=== PATIENT | female | born 1955 | race Caucasian/White ===

== ENCOUNTER 2017-09-23 12:11 | Inpatient (IN) | payer BC ==
[2017-09-23] MEDS ORDERED: Ondansetron 4 MG Tab.DIS PO PRN (16:55)
[2017-09-23] MEDS: Lactulose Soln 10 GM/15 ML 15 ML UD Cup PO SCH (19:18)
[2017-09-23] MEDS: oxyCODONE 5 MG Tab PO PRN (19:55)
[2017-09-24] MEDS: Alendronate 70 MG Tab PO SCH (06:19)
[2017-09-24] MEDS: oxyCODONE 5 MG Tab PO PRN ×2 (08:32→19:55)
[2017-09-24] MEDS: Enoxaparin 40 MG/0.4 ML Syringe SUBCUT SCH (08:34)
[2017-09-24] MEDS: Lactulose Soln 10 GM/15 ML 15 ML UD Cup PO SCH (08:34)
[2017-09-24] MEDS: Polyethylene Glycol 3350 Powder 17 GM Packet PO SCH (08:34)
[2017-09-24] MEDS: Lactulose Soln 10 GM/15 ML 30 ML UD Cup PO SCH (19:53)
[2017-09-25] MEDS: oxyCODONE 5 MG Tab PO PRN ×2 (08:29→20:47)
[2017-09-25] MEDS: Enoxaparin 40 MG/0.4 ML Syringe SUBCUT SCH (08:30)
[2017-09-25] MEDS: Lactulose Soln 10 GM/15 ML 30 ML UD Cup PO SCH ×2 (08:30→20:48)
[2017-09-25] MEDS: Polyethylene Glycol 3350 Powder 17 GM Packet PO SCH (08:30)
--- NOTE | 2017-09-25 12:44 | PCM.HP ---
H&P History of Present Illness - General Date of Service: 09/24/17 Admit Problem/Dx: Admission Diagnosis/Problem Admission Diagnosis/Problem Fracture of femur Source of Information: Patient - History of Present Illness Initial Comments - Free Text/Narative: 62-year-old female admitted to swing bed for continued therapy following fixation of her right femur. Patient had been doctoring with right upper extremity and hip pain. An MRI had been ordered for further evaluation. However the patient fell before this test could be obtained. Patient is uncertain whether or not her leg broke initially causing the fall or if the fall contributed to the fracture. Right Upper Leg Pain Score (Numeric/FACES): 5 - Related Data Allergies/Adverse Reactions: Allergies Allergy/AdvReac Type Severity Reaction Status Date / Time amoxicillin Allergy Unknown Hives Verified 09/23/17 16:52 Home Medications: Home Meds Acetaminophen [Tylenol] 650 mg PO Q4H PRN 09/23/17 [History] Alendronate Sodium [Fosamax] 70 mg PO Q7D 09/23/17 [History] Enoxaparin Sodium [Lovenox] 40 mg SQ DAILY 09/23/17 [History] Lactulose [Chronulac] 20 gm PO BID 09/23/17 [History] Polyethylene Glycol 3350 [MiraLAX] 17 gm PO DAILY 09/23/17 [History] Sennosides/Docusate Sodium [Senna-Docusate Sodium] 1 tab PO BID 09/23/17 [ History] oxyCODONE 5 mg PO Q4H PRN 09/23/17 [History] Past Medical History Musculoskeletal History: Reports: Osteoporosis Endocrine/Metabolic History: Reports: Osteopenia - Past Surgical History Female Surgical History: Reports: Hysterectomy Other Musculoskeletal Surgeries/Procedures:: right femur nailing Social & Family History - Family History Family Medical History: Noncontributory - Tobacco Use Smoking Status *Q: Unknown Ever Smoked - Recreational Drug Use Recreational Drug Use: No Drug Use in Last 12 Months: No H&P Review of Systems - Review of Systems: Review Of Systems: See Below General: Reports: No Symptoms HEENT: Reports: No Symptoms Pulmonary: Reports: No Symptoms Cardiovascular: Reports: No Symptoms Gastrointestinal: Reports: No Symptoms. Denies: Constipation Genitourinary: Reports: No Symptoms Musculoskeletal: Reports: Leg Pain Skin: Reports: No Symptoms Psychiatric: Reports: No Symptoms Neurological: Reports: No Symptoms Hematologic/Lymphatic: Reports: No Symptoms Immunologic: Reports: No Symptoms Exam - Exam Exam: See Below - Vital Signs Vital Signs: Last Vital Signs Temp 36.4 C 09/25/17 06:00 Pulse 74 09/25/17 06:00 Resp 20 09/25/17 06:00 BP 135/68 09/25/17 06:00 Pulse Ox 98 09/25/17 06:00 Weight: 77.111 kg - Exam General: Alert, Oriented HEENT: Conjunctiva Clear, EOMI Neck: Supple, Trachea Midline Lungs: Clear to Auscultation Cardiovascular: Regular Rate, Regular Rhythm GI/Abdominal Exam: Normal Bowel Sounds Extremities: No Pedal Edema Skin: Warm, Dry Neuro Extensive - Mental Status: Alert, Oriented x3 - Patient Data Result Diagrams: 09/24/17 06:55 09/24/17 06:55 *Q Meaningful Use (ADM) - VTE *Q VTE Criteria *Q: - Stroke *Q Stroke Criteria *Q: - AMI *Q AMI Criteria *Q: - Problem List (1) Osteopenia SNOMED Code(s): 041735268 ICD Code: M85.80 - OTH DISRD OF BONE DENSITY AND STRUCTURE, UNSPECIFIED SITE Status: Chronic Current Visit: Yes Qualifiers: Osteopenia location: multiple sites Qualified Code(s): M85.89 - Other specified disorders of bone density and structure, multiple sites (2) Closed fracture of femur SNOMED Code(s): 96992879 ICD Code: S72.90XA - UNSP FRACTURE OF UNSP FEMUR, INIT ENCNTR FOR CLOSED FRACTURE Status: Acute Current Visit: No Problem List Initiated/Reviewed/Updated: Yes Orders Last 24hrs: Active Orders 24 hr Category Date Time Status CBC W/O DIFF,HEMOGRAM [HEME] Q7D Lab 09/29/17 06:30 Ordered CBC W/O DIFF,HEMOGRAM [HEME] Q7D Lab 10/06/17 06:30 Ordered CBC W/O DIFF,HEMOGRAM [HEME] Q7D Lab 10/13/17 06:30 Ordered CREATININE W/GFR [CHEM] Q7D Lab 09/29/17 06:30 Ordered CREATININE W/GFR [CHEM] Q7D Lab 10/06/17 06:30 Ordered CREATININE W/GFR [CHEM] Q7D Lab 10/13/17 06:30 Ordered Lactulose [Cephulac] Med 09/24/17 20:00 Active 20 gm PO BID Medication Orders Acetaminophen (Tylenol) 650 mg PO Q4H PRN PRN Reason: Pain Alendronate Sodium (Fosamax) 70 mg PO Q7D@0700 [facility] Last Admin: 09/24/17 06:19 Dose: 70 mg Enoxaparin Sodium (Lovenox) 40 mg SUBCUT DAILY [facility] Stop: 10/14/17 08:01 Last Admin: 09/25/17 08:30 Dose: 40 mg Admin: 09/24/17 08:34 Dose: 40 mg Lactulose (Cephulac) 20 gm PO BID [facility] Last Admin: 09/25/17 08:30 Dose: Not Given Admin: 09/24/17 19:53 Dose: Not Given Ondansetron HCl (Zofran Odt) 4 mg PO Q4H PRN PRN Reason: nausea, able to take PO Oxycodone HCl (Oxycodone) 5 mg PO Q4H PRN PRN Reason: Pain Last Admin: 09/25/17 08:29 Dose: 5 mg Admin: 09/24/17 19:55 Dose: 5 mg Admin: 09/24/17 08:32 Dose: 5 mg Admin: 09/23/17 19:55 Dose: 5 mg Polyethylene Glycol (Miralax) 17 gm PO DAILY [facility] Last Admin: 09/25/17 08:30 Dose: Not Given Admin: 09/24/17 08:34 Dose: Not Given Senna/Docusate Sodium (Senna Plus) 1 tab PO BID [facility] Last Admin: 09/25/17 08:29 Dose: 1 tab Admin: 09/24/17 19:57 Dose: 1 tab Admin: 09/24/17 08:34 Dose: Not Given Admin: 09/23/17 19:55 Dose: 1 tab Assessment/Plan Comment:: Again patient will be admitted to swing bed and enrolled in both physical therapy as well as occupational therapy. She is a full code. Anticipate return to home upon discharge.
[2017-09-26] MEDS: Enoxaparin 40 MG/0.4 ML Syringe SUBCUT SCH (08:07)
[2017-09-26] MEDS: Acetaminophen 325 MG Tab PO PRN (08:09)
[2017-09-26] MEDS: Lactulose Soln 10 GM/15 ML 30 ML UD Cup PO SCH ×2 (08:36→20:59)
[2017-09-26] MEDS: Polyethylene Glycol 3350 Powder 17 GM Packet PO SCH (08:36)
[2017-09-26] MEDS: oxyCODONE 5 MG Tab PO PRN (21:06)
[2017-09-27] MEDS: Enoxaparin 40 MG/0.4 ML Syringe SUBCUT SCH (08:22)
[2017-09-27] MEDS: Acetaminophen 325 MG Tab PO PRN ×2 (08:32→22:32)
[2017-09-27] MEDS: Lactulose Soln 10 GM/15 ML 30 ML UD Cup PO SCH ×2 (15:56→21:17)
[2017-09-27] MEDS: Polyethylene Glycol 3350 Powder 17 GM Packet PO SCH (15:57)
[2017-09-28] MEDS: Enoxaparin 40 MG/0.4 ML Syringe SUBCUT SCH (07:33)
[2017-09-28] MEDS: Polyethylene Glycol 3350 Powder 17 GM Packet PO SCH (07:34)
[2017-09-28] MEDS: Lactulose Soln 10 GM/15 ML 30 ML UD Cup PO SCH ×2 (07:34→20:23)
[2017-09-28] MEDS: Acetaminophen 325 MG Tab PO PRN (20:36)
[2017-09-29] MEDS: Enoxaparin 40 MG/0.4 ML Syringe SUBCUT SCH ×2 (06:41→07:03)
[2017-09-29] MEDS: Polyethylene Glycol 3350 Powder 17 GM Packet PO SCH (07:03)
[2017-09-29] MEDS: Lactulose Soln 10 GM/15 ML 30 ML UD Cup PO SCH ×2 (07:03→20:51)
[2017-09-30] MEDS: Enoxaparin 40 MG/0.4 ML Syringe SUBCUT SCH (07:52)
[2017-09-30] MEDS: Lactulose Soln 10 GM/15 ML 30 ML UD Cup PO SCH (07:52)
[2017-09-30] MEDS: Polyethylene Glycol 3350 Powder 17 GM Packet PO SCH (07:52)
[2017-09-30] MEDS: Acetaminophen 325 MG Tab PO PRN (07:55)
[2017-10-01] MEDS: Alendronate 70 MG Tab PO SCH (06:54)
[2017-10-01] MEDS: Enoxaparin 40 MG/0.4 ML Syringe SUBCUT SCH (07:49)
[2017-10-01] MEDS: Acetaminophen 325 MG Tab PO PRN (22:34)
[2017-10-02 05:22] VITALS: BP 118/51
[2017-10-02] MEDS: Enoxaparin 40 MG/0.4 ML Syringe SUBCUT SCH (07:22)
--- NOTE | 2017-10-02 22:22 | PCM.DCSUM1 ---
Discharge Summary - Hospital Course Free Text/Narrative:: 62 year old female admitted to swing bed for continued therapy following ORIF of her right femur fracture. - Discharge Data Discharge Date: 10/01/17 Discharge Disposition: Home, Self-Care 01 Condition: Good - Discharge Diagnosis/Problem(s) (1) Osteopenia SNOMED Code(s): 863385464 ICD Code: M85.80 - OTH DISRD OF BONE DENSITY AND STRUCTURE, UNSPECIFIED SITE Status: Chronic Qualifiers: Osteopenia location: multiple sites Qualified Code(s): M85.89 - Other specified disorders of bone density and structure, multiple sites (2) Closed fracture of femur SNOMED Code(s): 75877426 ICD Code: S72.90XA - UNSP FRACTURE OF UNSP FEMUR, INIT ENCNTR FOR CLOSED FRACTURE Status: Acute - Patient Summary/Data Consults: Consultations 09/23/17 13:47 OT Evaluation and Treatment [CONS] Routine PT Evaluation and Treatment [CONS] Routine - Patient Instructions Driving: Do Not Drive Showering/Bathing: May Shower - Discharge Plan Home Medications: Home Meds Acetaminophen [Tylenol] 650 mg PO Q4H PRN tablet 10/01/17 [Rx] Alendronate [Fosamax] 70 mg PO Q7D@0700 tablet 10/01/17 [Rx] - Discharge Summary/Plan Comment DC Time >30 min.: No - General Info Date of Service: 10/01/17 Admission Dx/Problem (Free Text: Admission Diagnosis/Problem Admission Diagnosis/Problem Fracture of femur Functional Status: Reports: Pain Controlled - Review of Systems General: Denies: Fever HEENT: Reports: No Symptoms Pulmonary: Reports: No Symptoms. Denies: Shortness of Breath Cardiovascular: Reports: No Symptoms. Denies: Chest Pain Gastrointestinal: Reports: No Symptoms. Denies: Constipation Genitourinary: Reports: No Symptoms Musculoskeletal: Reports: No Symptoms. Denies: Leg Pain - Patient Data Vitals - Most Recent: Last Vital Signs Temp 36.9 C 10/02/17 05:21 Pulse 78 10/02/17 05:21 Resp 16 10/02/17 05:21 BP 118/51 L 10/02/17 05:21 Pulse Ox 99 10/02/17 05:21 Weight - Most Recent: 77.111 kg I&O - Last 24 hours: Intake & Output 10/02/17 10/02/17 10/02/17 06:59 14:59 22:59 Intake Total 240 Balance 240 Med Orders - Current: Current Medications Discontinued Medications Acetaminophen (Tylenol) 650 mg PO Q4H PRN PRN Reason: Pain Last Admin: 10/01/17 22:34 Dose: 650 mg Alendronate Sodium (Fosamax) 70 mg PO Q7D@0700 [facility] Last Admin: 10/01/17 06:54 Dose: 70 mg Enoxaparin Sodium (Lovenox) 40 mg SUBCUT DAILY [facility] Stop: 10/14/17 08:01 Last Admin: 10/02/17 07:22 Dose: 40 mg Lactulose (Chronulac) 20 gm PO BID [facility] Last Admin: 09/24/17 08:34 Dose: Not Given Lactulose (Cephulac) 20 gm PO BID [facility] Last Admin: 09/30/17 07:52 Dose: Not Given Ondansetron HCl (Zofran Odt) 4 mg PO Q4H PRN PRN Reason: nausea, able to take PO Oxycodone HCl (Oxycodone) 5 mg PO Q4H PRN PRN Reason: Pain Last Admin: 09/26/17 21:06 Dose: 5 mg Polyethylene Glycol (Miralax) 17 gm PO DAILY [facility] Last Admin: 09/30/17 07:52 Dose: Not Given Senna/Docusate Sodium (Senna Plus) 1 tab PO BID [facility] Last Admin: 09/30/17 07:52 Dose: Not Given Senna/Docusate Sodium (Senna Plus) 1 tab PO BID PRN PRN Reason: Constipation - Exam General: Reports: Alert, Oriented Lungs: Reports: Clear to Auscultation Cardiovascular: Reports: Regular Rate GI/Abdominal Exam: Normal Bowel Sounds Extremities: No Pedal Edema Skin: Reports: Warm, Dry, Intact Wound/Incisions: Reports: Healing Well Psy/Mental Status: Reports: Alert, Normal Mood *Q Meaningful Use (DIS) - VTE *Q VTE Criteria *Q: - Stroke *Q Stroke Criteria *Q: - AMI *Q AMI Criteria *Q:
== END 2017-10-02 10:15 | disposition home or self-care (01) | DRG 862 ==
LOC: VM.MS 13:45
PROVIDERS: ADMIT Family Medicine; ATTEND Family Medicine
DX: S72.91XD Unspecified fracture of right femur, subsequent encounter for closed fracture with routine healing (principal); M85.89 Other specified disorders of bone density and structure, multiple sites; M81.0 Age-related osteoporosis without current pathological fracture; Z79.899 Other long term (current) drug therapy
CPT/HCPCS: 36415; 82565; 85027; 85049; 97110-GP; 97116-GP; 97161-GP; 97165-GO; 97530-GP; 97535-GO; A9270-GY; J1650

== ENCOUNTER 2024-10-17 11:00 | Day surgery (SDC) | payer MEDICARE, BC ==
[2024-10-17] MEDS: Lactated Ringers 1,000 ML IV SCH (11:19)
[2024-10-17] MEDS ORDERED: fentaNYL 100 MCG/2 ML SDV ONE (11:23)
[2024-10-17] MEDS ORDERED: Propofol 200 MG/20 ML SDV ONE ×2 (11:23→11:54)
[2024-10-17] MEDS ORDERED: Ondansetron 4 MG/2 ML SDV IV PRN (12:25)
[2024-10-17] MEDS ORDERED: Glycopyrrolate 0.2 MG/ML 2 ML SDV ONE (12:37)
[2024-10-17 13:25] VITALS: BP 134/66; PULSE 52
== END 2024-10-17 13:38 | disposition home or self-care (01) ==
LOC: VM.SDS 11:00
PROVIDERS: ATTEND Surgery
DX: Z12.11 Encounter for screening for malignant neoplasm of colon (principal); Z88.1 Allergy status to other antibiotic agents; Z79.899 Other long term (current) drug therapy
CPT/HCPCS: 00812; 99100; J2704; J3010; J3490; J7120